=== PATIENT | female | born 1985 | race Caucasian/White ===

== ENCOUNTER 2016-11-26 16:59 | Emergency (ER) | payer OTHER ==
[2016-11-26] MEDS ORDERED: SOLUMEDROL 125 MG/2 ML 125 MG/2 ML PDS IM ONE (17:53)
[2016-11-26] MEDS ORDERED: SOLUMEDROL 125 MG/2 ML 125 MG/2 ML PDS ONE (18:01)
[2016-11-26 18:50] VITALS: BP 144/97; PULSE 101; RESP 24; TEMP 98.6; O2SAT 100
== END 2016-11-26 18:10 | disposition home or self-care (01) ==
LOC: ED 16:59
DX: J20.9 Acute bronchitis, unspecified (principal)
CPT/HCPCS: 99282 ×2; J2930; 96372; 99283